=== PATIENT | male | born 2000 | race Two or more races ===

== ENCOUNTER 2020-09-15 16:33 | Emergency (ER) | payer OTHER ==
[~2020-09-15] VITALS: Ht 180.3 cm; Wt 104.3 kg
[2020-09-15 16:37] VITALS: BP 136/82
--- NOTE | 2020-09-15 17:21 | NUR ---
PT IS MEDICALLY CLEARED FOR INCARCERATION. PT IS IN STABLE CONDITION FOR DISCHARGE. PT IS AMBULATORY ON STEADY GAIT
== END 2020-09-15 17:22 ==
LOC: ER 16:38
DX: F41.0 Panic disorder [episodic paroxysmal anxiety] (principal); F12.90 Cannabis use, unspecified, uncomplicated; F32.9 Major depressive disorder, single episode, unspecified; Z60.2 Problems related to living alone